=== PATIENT | male | born 1990 | race Hispanic/Latino ===

== ENCOUNTER 2016-10-19 05:56 | Inpatient (IN) | payer MEDICAID ==
[2016-10-19 05:56] VITALS: BMI 29.0
[2016-10-19 06:04] VITALS: O2SAT 98
--- NOTE | 2016-10-19 06:04 | ED PDOC ---
Psych Transfer Clearance - Clearance Statement Clearance Statement: Reviewed vital signs, lab results and transfer papers. Patient clinically stable for psychiatric admission.
[2016-10-19] MEDS ORDERED: DiphenhydrAMINE 50 mg/ml Inj IM PRN (06:22)
[2016-10-19] MEDS ORDERED: Magnesium Hydroxide Susp 30 ml UD PO PRN (06:22)
[2016-10-19] MEDS ORDERED: Alum-Mag Hydrox-Simethicone Susp (30 mL) PO PRN (06:22)
[2016-10-19 09:07] VITALS: RESP 18
[2016-10-19] MEDS ORDERED: Pneumococcal 23-Valent Vaccine IM ONE (10:52)
[2016-10-19] MEDS ORDERED: Patient's Own Med (Bupropion Xl [Wellbutrin Xl] 150 MG) PO SCH (11:45)
[2016-10-19] MEDS: buPROPion SR 150 MG TABLET PO SCH (12:32)
--- NOTE | 2016-10-19 13:18 | PCM.BM ---
<Janine Parks - Last Filed: 10/19/16 13:15> Treatment Plan Problems - Problems identified on initial assessmt Altered thinking process Date Initiated: 10/19/16 Time Initiated: 13:16 Assessment reference: NA Status: Active Treatment assets and liabiliti Patient Assests: cooperative, educated, insightful, self-reliant, ADL independent, negotiates basic needs, strong erika Patient Liabilities: financial problems, relationship conflicts - Milieu Protocol Maintain good personal hygiene: daily Encourage regular showers, every shift Remind patient to perform daily oral care, every shift Assist patient to perform ADL's Maintain personal safety: every shift Educate patient to report safety concerns to staff, every shift Monitor environment for contraband/sharps Medication safety: Monitor for expected outcome, potential side effects: every shift, Assess barriers to learning: every shift, Assess readiness for medication education: every shift Discharge/Continuing Care - Education Needs Education Needs: Patient Medication, Patient Diagnosis/Disease Process, Patient Coping Skills, Patient Placement options, Patient Community resources - Discharge Discharge Criteria: Tolerates medication w/o severe side effects, Free of Homicidal thoughts Discharge to:: Group Home, Other - Treatment Team Participation Discussed with Family/SO: No (Family not involved) <Dragan Valderrama - Last Filed: 10/20/16 10:47> Family Contact Family contact: Patient agrees to contact, Family has been contacted by patient , Telephone contact initiated by staff Family contact name: Bishop Walter Robledo Family contacted how many times per week?: 2 ([phone]) - Outside Agency Agency 1 Care involvment: Following patient during stay, Information-sharing Agency contact name: [facility], Dr. Manuel Russo Agency contact number: [phone] - Goals for Treatment Patient goals for treatment: Reduce intrusive homicidal thoughts. Pt would like to be connected to a therapist. Discharge/Continuing Care - Education Needs Education Needs: Patient Medication, Patient Diagnosis/Disease Process, Patient Coping Skills, Patient Placement options, Patient Community resources
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
[2016-10-19] MEDS: Divalproex 500 mg DR(BID formulation) PO SCH (21:37)
[2016-10-20] MEDS: buPROPion SR 150 MG TABLET PO SCH (08:24)
[2016-10-20] MEDS: Divalproex 500 mg DR(BID formulation) PO SCH ×2 (08:24→21:06)
[2016-10-20 09:06] LABS: T4 7.01 ug/dl (5.5-11.0)
--- NOTE | 2016-10-20 12:00 | PCM.PYCHPN ---
Psychiatric Progress Note - Psychiatric Progress Note Patient seen today, length of contact: discussed with team Patient Chief Complaint: my thoughts are pretty calm Problems Identified/Issues Discussed: pt states he slept well last night with no nightmares. he is feeling calm this morning Medication Change: No Medical Record Reviewed: Yes Mental Status Examination - Cognitive Function Orientation: Person, Place, Situation, Time Memory: Intact Attention: WNL Concentration: WNL Association: WNL Fund of Knowledge: [facility] Decription of patient's judgement and insights: fair - Mood Mood: Anxious - Affect Affect: Constricted - Speech Speech: Appropriate - Formal Thought Process Formal Thought Process: No Impairment - Suicidal Ideation Suicidal Ideation: No - Homicidal Ideation Homicidal Ideation: No Plan: denies any homicidal thoughts Goal/Treatment Plan - Goal/Treatment Plan Need for Continued Stay: Remain at risks for inpatient hospitalization, Severe functional impairment Progress Toward Problem(s) and Goals/Treatment Plan: bipolar disorder continue current treatment disposition planning encourage participation in groups Estimated Date of D/C: 10/26/16
[2016-10-21] MEDS: Divalproex 500 mg DR(BID formulation) PO SCH (08:53)
[2016-10-21] MEDS: buPROPion SR 150 MG TABLET PO SCH (08:53)
[2016-10-21 09:11] VITALS: BP 111/76; PULSE 56; TEMP 97.5
--- NOTE | 2016-10-21 11:26 | PCM.PYCHDC ---
Mental Status Examination - Mental Status Examination Orientation: Person, Place, Situation, Time Memory: Intact Mood: Neutral Affect: Broad Speech: Appropriate Attention: WNL Concentration: WNL Association: WNL Fund of Knowledge: WNL Formal Thought Process: No Impairment Description of patient's judgement and insight: fair Psychotic Thoughts and Behaviors: denies a/v hallucinations or intrusive thoughts Suicidal Ideation: No Current Homicidal Ideation?: No Plan: denies any suicidal or homicidal thoughts at this time and since his abilify was increased Discharge Summary - Discharge Note Reason for Hospitalization: pt reported homicidal thoughts prior to admission Psychiatric History (includes Medical, Family, Personal Hx): history of bipolar disorder, previous hospitalizations Laboratory Data: Abnormal Lab Results 10/20/16 10/21/16 07:30 07:30 Valproic Acid 68.0 RPR Nonreactive Consultations:: List each consultation separately and include: 1. Reason for request. 2. Findings. 3. Follow-up Consultations: seen by hospitalist Summary of Hospital Course include:: 1. Description of specific treatment plan utilized for patients during their course of treatmen. 2. Summarize the time- course for resolution of acute symptoms and/or regressed behaviors. 3. Describe issues identified and worked on during hospitalization. 4. Describe medication utilized. 5. Describe medical problems identified and treated. 6. Reassessment of suicide risk Summary of Hospital Course: pt is a recently homeless 25 yo male who is with history of bipolar disorder and under the care of dr. boo in [place]. he has a history of previous hospitalizations, most recent two in [place]. he is presenting with increasing thoughts to hurt others that are intrusive and detailed. he does not want to act on his thoughts and he has no specific target. he tries to say prayers and think through the consequences of acting violently to prevent any action. he reports he is anxious and irritable. he denies any recent hallucinations. he denies any suicidal thoughts, but does have a history of jumping in front of a care a few years ago. he states he takes his medications as prescribed. he has recently moved to [place] and had previously been living with his father in [place]. 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 the [employer] is supportive and was helping him with housing. hospital course: admitted to [facility] and oriented to the unit. placed on routine safety protocols. started back on home meds. depakoe level was 68. his abilify dose was increased to 10mg at hs. he tolerated this increase and reported good sleep without any c/ o side effects. he stated he was no longer having any intrusive thoughts and was no longer having homicidal or violent thoughts. he was reconnected to [place] [facility] and was able to secure a place to live with his mother. At the time of discharge he was goal directed and future oriented and was denying any suicidal or homicidal thoughts. he was participating in groups. - Final Diagnosis (DSM 5) Condition upon Discharge: GOOD DSM 5: bipolar disorder, depressed Disposition: HOME/ ROUTINE Follow-up Treatment Plan: follow up with aftercare as directed take medications as prescribed do not use alcohol tobacco or other illicit substances call 911 if any suicidal or homicidal thoughts Prescriptions/Medication Reconciliation: ARIPiprazole [Abilify] 10 mg PO HS #15 tab buPROPion XL [Wellbutrin XL] 150 mg PO DAILY #14 tab Divalproex [Depakote DR(*BID*)] 500 mg PO QAM #14 tcp Divalproex [Depakote DR(*BID*)] 1,000 mg PO HS #28 tab Famotidine [Pepcid] 40 mg PO HS #14 tab - Smoking Cessation Smoking Cessation Medication prescribed: No - Antipsychotic Medications Pt discharged on 2 or more routine antipsychotic medications: No
== END 2016-10-21 12:57 | disposition home or self-care (01) | DRG 430 ==
LOC: H.ER 05:56 → H.PSYCH 06:03
PROVIDERS: ADMIT Psychiatry & Neurology Psychiatry; ATTEND Psychiatry & Neurology Psychiatry
DX: F31.9 Bipolar disorder, unspecified (principal); R45.850 Homicidal ideations; Z59.0 Homelessness

== ENCOUNTER 2016-11-17 21:55 | Emergency (ER) | payer MEDICAID ==
[2016-11-17 21:55] VITALS: BMI 29.0
[2016-11-17 22:08] VITALS: RESP 16
[2016-11-17] MEDS ORDERED: Sodium Chloride 0.9% 1,000 ML IV STA (23:27)
[2016-11-17 23:35] LABS: BASO # 0.1 K/uL (0.0-0.2); BASO % 0.6 % (0.0-2.0); EOS # 0.2 K/uL (0.0-0.7); EOS % 2.1 % (0.0-4.0); HEMATOCRIT 40.9 % (35.0-51.0); LYMPH # 2.4 K/uL (1.0-4.3); LYMPH % 24.6 % (20.0-40.0); MEAN CELL VOLUME 88.9 fl (80.0-94.0); MEAN CORPUSCULAR HEMOGLOBIN 29.5 pg (27.0-31.0); MEAN CORPUSCULAR HGB CONC 33.2 g/dL (33.0-37.0); MEAN PLATELET VOLUME 9.1 fl (7.2-11.7); MONO # 1.2 K/uL (0.0-0.8); MONO % 12.6 % (0.0-10.0); NEUT # 5.8 K/uL (1.8-7.0); NEUT % 60.1 % (50.0-75.0); NRBC % 0.1 % (0.0-0.0); RED CELL DISTRIBUTION WIDTH 13.9 % (11.5-14.5); WHITE BLOOD COUNT 9.7 K/uL (4.8-10.8)
--- NOTE | 2016-11-17 23:43 | ED PDOC ---
HPI: General Adult Time Seen by Provider: 11/17/16 22:20 Chief Complaint (Nursing): Dizziness/Lightheaded Chief Complaint (Provider): Rectal Bleed History Per: Patient History/Exam Limitations: no limitations Onset/Duration Of Symptoms: Other (x11 years on/off) Current Symptoms Are (Timing): Intermittent Episodes Additional Complaint(s): 25 year old male presents to ED with complaints of on/off rectal bleeding x11 years and a past medical history of bipolar disorder and depression. Patient denies ever receiving a diagnosis or following up with doctors. States that he went to [facility] earlier and received "a finger up his butt" and was told to have a colonoscopy as an outpatient. Notes persistence of symptoms as reason for ED visit. (+) dizziness, dry heaving, or nausea. (-) head trauma, vomiting, abdominal pain, or chest pain. bleeding currently resolved. pt sleeping throuout ER stay except to be awoken for examination and history PCP: None Past Medical History Reviewed: Historical Data, Nursing Documentation, Vital Signs Vital Signs: Last Vital Signs Temp 98.2 F 11/18/16 03:01 Pulse 79 11/18/16 03:01 Resp 16 11/18/16 03:01 BP 120/74 11/18/16 03:01 Pulse Ox 100 11/18/16 03:01 - Medical History PMH: Bipolar Disorder Denies: Diabetes, Hepatitis, HIV, HTN, Chronic Kidney Disease, Seizures, Sexually Transmitted Disease - Surgical History Surgical History: No Surg Hx - Family History Family History: States: No Known Family Hx - Social History Current smoker - smoking cessation education provided: No Ex-Smoker (has not smoked in the last 12 months): No Alcohol: None Drugs: Denies - Immunization History Hx Tetanus Toxoid Vaccination: Yes Hx Influenza Vaccination: No Hx Pneumococcal Vaccination: No - Home Medications Home Medications: Ambulatory Orders Medication Instructions Recorded ARIPiprazole [Abilify] 10 mg PO HS #15 tab 10/21/16 Divalproex [Depakote DR(*BID*)] 1,000 mg PO HS #28 tab 10/21/16 Divalproex [Depakote DR(*BID*)] 500 mg PO QAM #14 tcp 10/21/16 Famotidine [Pepcid] 40 mg PO HS #14 tab 10/21/16 buPROPion XL [Wellbutrin XL] 150 mg PO DAILY #14 tab 10/21/16 - Allergies Allergies/Adverse Reactions: Allergies Allergy/AdvReac Type Severity Reaction Status Date / Time Dairy Allergy DIARRHEA Uncoded 11/17/16 22:04 Review of Systems ROS Statement: Except As Marked, All Systems Reviewed And Found Negative Cardiovascular: Negative for: Chest Pain Gastrointestinal: Positive for: Nausea, Other ((+) dry heaving). Negative for: Vomiting, Abdominal Pain Neurological: Positive for: Dizziness Physical Exam - Reviewed Nursing Documentation Reviewed: Yes Vital Signs Reviewed: Yes - Physical Exam Appears: Positive for: Non-toxic, No Acute Distress (bad hygiene, foul smelling , unkempt) Skin: Positive for: Normal Color, Warm, Dry Eye Exam: Positive for: Normal appearance ENT: Positive for: Normal ENT Inspection Neck: Positive for: Normal, Painless ROM, Supple Cardiovascular/Chest: Positive for: Regular Rate, Rhythm. Negative for: Murmur Respiratory: Positive for: Normal Breath Sounds. Negative for: Respiratory Distress Gastrointestinal/Abdominal: Positive for: Normal Exam, Soft. Negative for: Tenderness Extremity: Positive for: Normal ROM. Negative for: Deformity Neurologic/Psych: Positive for: Alert, Oriented. Negative for: Motor/Sensory Deficits - Laboratory Results Result Diagrams: 11/17/16 23:32 11/17/16 23:32 - ECG O2 Sat by Pulse Oximetry: 97 (RA) Pulse Ox Interpretation: Normal Medical Decision Making Medical Decision Makin Initial impression rectal bleed rule out anemia Initial plan: * T&S * EKG * EtOH serum * Labs * UDrug screen * NS IV 0240 Labs returned: hemoglobin is stable Patient is medically stable for discharge home. Patient was sleeping throughout ED stay and was given outpatient GI follow up. Return precautions given. Scribe Attestation: Documented by Francia Muñoz acting as a scribe for Shakira Motley MD. Scribe Attestation: All medical record entries made by the Scribe were at my direction and personally dictated by me. I have reviewed the chart and agree that the record accurately reflects my personal performance of the history, physical exam, medical decision making, and the department course for this patient. I have also personally directed, reviewed, and agree with the discharge instructions and disposition. Disposition - Clinical Impression Clinical Impression: Dizziness - Patient ED Disposition Is Patient to be Admitted: No Counseled Patient/Family Regarding: Studies Performed, Diagnosis, Need For Followup - Disposition [facility]] Addi Manrique MD, PhD [Staff Provider] - Disposition: Routine/Home Disposition Time: 02:40 Condition: IMPROVED Additional Instructions: follow up with your GI doctor in 1-2 days return to ED with any worsening or concerning symptoms Instructions: Rectal Bleeding (ED) Forms: [employer] (Japanese)
[2016-11-17 23:44] LABS: ALB/GLOB RATIO 1.6 (1.0-2.1); ALKALINE PHOSPHATASE 51 U/L (38-126); ALT/SGPT 32 U/L (21-72); AST/SGOT 22 U/L (17-59); BILIRUBIN,TOTAL 0.8 mg/dl (0.2-1.3); BLOOD UREA NITROGEN 16 mg/dl (9-20); CALCIUM 9.4 mg/dL (8.4-10.2); CARBON DIOXIDE 25 mmol/L (22-30); CHLORIDE 105 mmol/L (98-107); GFR AFRICAN-AMERICAN > 60; GLUCOSE,RANDOM 93 mg/dL (75-110); POTASSIUM 4.1 MMOL/L (3.6-5.0); SODIUM 140 mmol/l (132-148); TOTAL PROTEIN 6.4 G/DL (6.3-8.2)
[2016-11-18 04:15] VITALS: BP 120/74; PULSE 79; TEMP 98.2
[2016-11-18 06:31] VITALS: O2SAT 97
--- NOTE | 2016-11-18 08:15 | CARD ---
APPROVED REPORT EKG Measurement Heart [id number] <Conclusion> Sinus bradycardia with occasional premature ventricular complexes Otherwise normal ECG
== END 2016-11-18 02:45 | disposition home or self-care (01) ==
LOC: H.ER 21:55
DX: R42 Dizziness and giddiness (principal); Z86.59 Personal history of other mental and behavioral disorders; Z87.891 Personal history of nicotine dependence